=== PATIENT | female | born 1990 | race Caucasian/White ===

== ENCOUNTER → 2022-10-19 | Outpatient (CLI) | payer OTHER ==
[~2022-10-19] MED LIST: COLA100C5 PO; IBUP80TA PO; MAPA500T2 PO; PRENTAB20 PO; VIIB40TA PO
== END ==
LOC: M LABSMTC 09:24
PROVIDERS: ATTEND Anesthesiology
DX: Z01.812 Encounter for preprocedural laboratory examination (principal); Z11.52 Encounter for screening for COVID-19

== ENCOUNTER 2022-10-21 09:57 | Day surgery (SDC) | payer OTHER ==
[~2022-10-21] VITALS: Ht 162.6 cm; Wt 69.4 kg
[~2022-10-21 09:57] MED LIST changes: +dexameTHASONE 4 MG/ML 1ML VIAL (J1100 PER 1MG) IV ONE
[2022-10-21] MEDS ORDERED: LR 1,000 ML IV SCH (10:55)
[2022-10-21 11:04] LABS: CHLORIDE LEVEL 104 MMOL/L (98-107); SODIUM LEVEL 140 MMOL/L (136-145)
[2022-10-21 11:06] LABS: CARBON DIOXIDE LEVEL 29 MMOL/L (20-31)
[2022-10-21 11:10] LABS: BLOOD UREA NITROGEN 13 MG/DL (9-23); CALCIUM LEVEL 9.4 MG/DL (8.5-10.1); GLUCOSE, FASTING 86 MG/DL (60-100)
[2022-10-21 11:12] LABS: CREATININE FOR GFR 0.66 MG/DL (0.55-1.30); GLOMERULAR FILTRATION RATE > 60.0 (>60)
[2022-10-21] MEDS ORDERED: LIDOCAINE 2% 100MG/5ML SDV (FOR ANES.) As Ordered ONE (12:05)
[2022-10-21] MEDS ORDERED: MIDAZOLAM INJ 2MG/2ML VIAL (J2250 PER 1MG) As Ordered ONE (12:05)
[2022-10-21] MEDS ORDERED: fentaNYL 100 MCG/2 ML INJECTION As Ordered ONE (12:05)
[2022-10-21] MEDS ORDERED: propofoL 200 MG/20 ML VIAL As Ordered ONE (12:05)
[2022-10-21] MEDS ORDERED: dexameTHASONE 4 MG/ML 1ML VIAL (J1100 PER 1MG) As Ordered ONE (12:22)
[2022-10-21] MEDS ORDERED: ACETAMINOPHEN 1000MG 100ML IV BAG As Ordered ONE (12:24)
[2022-10-21] MEDS ORDERED: SUGAMMADEX SODIUM 500 MG/5 ML VIAL (BRIDION) As Ordered ONE ×2 (12:28→12:29)
[2022-10-21] MEDS ORDERED: ONDANSETRON 4MG 2ML VIAL IV PRN (12:40)
[2022-10-21] MEDS: oxyCODONE 5MG TAB PO PRN ×2 (13:12→13:44)
[2022-10-21] MEDS: fentaNYL 100 MCG/2 ML INJECTION IV PRN ×4 (13:12→13:45)
[2022-10-21 15:00] VITALS: BP 108/61
== END 2022-10-21 15:14 | disposition home or self-care (01) ==
LOC: M SDC 09:57
PROVIDERS: ATTEND Otolaryngology
DX: J35.01 Chronic tonsillitis (principal); Z88.8 Allergy status to other drugs, medicaments and biological substances
CPT/HCPCS: 36415; 42826; 80048; 88302; 93005; J0131; J1100; J2250; J3010

== ENCOUNTER 2022-10-29 05:49 | Emergency (ER) | payer OTHER ==
[~2022-10-29] VITALS: Ht 162.6 cm; Wt 68.1 kg
[~2022-10-29 05:49] MED LIST changes: -dexameTHASONE 4 MG/ML 1ML VIAL (J1100 PER 1MG) IV ONE
[2022-10-29 05:51] VITALS: BP 103/74
== END 2022-10-29 08:55 | disposition left against medical advice (07) ==
LOC: M ED 05:49
DX: Z53.21 Procedure and treatment not carried out due to patient leaving prior to being seen by health care provider (principal)

== ENCOUNTER 2022-11-02 09:48 | Observation (INO) | payer OTHER ==
[~2022-11-02] VITALS: Ht 162.6 cm; Wt 68.4 kg
[2022-11-02] VITALS (8 sets, daily range): BP systolic 88–108; BP diastolic 54–69
[2022-11-02] MEDS ORDERED: TRANEXAMIC ACID 100 MG/ML 10ML VIAL NEB ONE (10:00)
[2022-11-02] MEDS ORDERED: BUPIVACAINE/EPIN 0.5% 30ML VIAL As Ordered ONE (10:15)
[2022-11-02] MEDS ORDERED: OXYMETAZOLINE 0.05% NASAL SPRAY (AFRIN) As Ordered ONE (10:15)
[2022-11-02] MEDS ORDERED: fentaNYL 100 MCG/2 ML INJECTION As Ordered ONE ×2 (10:16→11:24)
[2022-11-02] MEDS ORDERED: ROCURONIUM BROMIDE 50 MG/5 ML VIAL As Ordered ONE (10:17)
[2022-11-02] MEDS ORDERED: MIDAZOLAM INJ 2MG/2ML VIAL (J2250 PER 1MG) As Ordered ONE (10:18)
[2022-11-02] MEDS ORDERED: LIDOCAINE 2% 100MG/5ML SDV (FOR ANES.) As Ordered ONE (10:22)
[2022-11-02 10:34] LABS: BASO % 0.5 % (0.0-1.0); EOS # 0.1 10^3/uL (0.0-0.5); EOS % 0.7 % (0.0-3.0); HEMATOCRIT 28.8 % (36.0-47.0); HEMOGLOBIN 9.4 g/dl (12.0-15.5); LYMPH # 1.9 10^3/uL (1.5-5.0); LYMPH % 22.5 % (24.0-44.0); MEAN CORPUSCULAR HEMOGLOBIN 29.7 pg (27.0-33.0); MEAN CORPUSCULAR HGB CONC 32.6 g/dl (32.0-36.5); MEAN CORPUSCULAR VOLUME 90.9 fl (80.0-96.0); MONO # 0.6 10^3/uL (0.0-0.8); NEUTROPHILS % 69.1 % (36.0-66.0); PLATELET COUNT, AUTOMATED 230 10^3/uL (150-450); RED BLOOD COUNT 3.17 10^6/uL (4.00-5.40); WHITE BLOOD COUNT 8.6 10^3/uL (4.0-10.0)
[2022-11-02] MEDS ORDERED: ACETAMINOPHEN 1000MG 100ML IV BAG As Ordered ONE (10:53)
[2022-11-02] MEDS ORDERED: PHENYLephrine 500MCG 5ML (100MCG/ML) SYRINGE As Ordered ONE (10:55)
[2022-11-02] MEDS ORDERED: ePHEDrine SULFATE 25 MG/5 ML(5MG/ML) SYRINGE As Ordered ONE (10:56)
[2022-11-02] MEDS ORDERED: SUGAMMADEX SODIUM 500 MG/5 ML VIAL (BRIDION) As Ordered ONE (10:57)
[2022-11-02 11:03] LABS: BLOOD UREA NITROGEN 24 MG/DL (9-23); CALCIUM LEVEL 7.9 MG/DL (8.5-10.1); CARBON DIOXIDE LEVEL 24 MMOL/L (20-31); CHLORIDE LEVEL 111 MMOL/L (98-107); CREATININE FOR GFR 0.67 MG/DL (0.55-1.30); GLOMERULAR FILTRATION RATE > 60.0 (>60); GLUCOSE, FASTING 105 MG/DL (60-100); POTASSIUM SERUM 4.4 MMOL/L (3.5-5.1); SODIUM LEVEL 142 MMOL/L (136-145)
[2022-11-02] MEDS ORDERED: LR 1,000 ML IV SCH (11:25)
[2022-11-02] MEDS ORDERED: ONDANSETRON 4MG 2ML VIAL IV PRN ×2 (11:25→12:25)
[2022-11-02] MEDS: fentaNYL 100 MCG/2 ML INJECTION IV PRN ×4 (11:26→11:44)
[2022-11-02] MEDS: MORPHINE 2 MG/ML 1ML VIAL IV PRN ×3 (12:03→12:50)
[2022-11-02] MEDS: HYDROcodone/APAP LIQUID 7.5-325MG 15ML UDC (LORTAB ELIXIR) PO PRN ×3 (13:06→20:46)
[2022-11-02] MEDS: LR 1,000 ML IV SCH ×2 (15:08→20:47)
[2022-11-02] MEDS: MAGIC MOUTHWASH SUSPENSION BTL SS PRN ×2 (18:43→22:31)
[2022-11-02] MEDS: AUGMENTIN BID 400MG/5ML SUSP 50ML BTL PO SCH (20:47)
[2022-11-02] MEDS ORDERED: MORPHINE 10 MG/ML 1ML VIAL IV ONE (23:40)
[2022-11-03] VITALS (9 sets, daily range): BP systolic 95–116; BP diastolic 58–70; O2SAT 100
[2022-11-03 00:24] LABS: MEAN CORPUSCULAR HEMOGLOBIN 29.8 pg (27.0-33.0); MEAN CORPUSCULAR HGB CONC 32.8 g/dl (32.0-36.5); MEAN CORPUSCULAR VOLUME 90.8 fl (80.0-96.0); PLATELET COUNT, AUTOMATED 150 10^3/uL (150-450); RED BLOOD COUNT 2.18 10^6/uL (4.00-5.40); WHITE BLOOD COUNT 10.8 10^3/uL (4.0-10.0)
[2022-11-03 00:29] LABS: HEMATOCRIT 19.8 % (36.0-47.0); HEMOGLOBIN 6.5 g/dl (12.0-15.5)
[2022-11-03] MEDS: HYDROcodone/APAP LIQUID 7.5-325MG 15ML UDC (LORTAB ELIXIR) PO PRN ×3 (03:21→14:57)
[2022-11-03 07:19] LABS: HEMATOCRIT 30.1 % (36.0-47.0); MEAN CORPUSCULAR HGB CONC 32.9 g/dl (32.0-36.5); MEAN CORPUSCULAR VOLUME 91.2 fl (80.0-96.0); PLATELET COUNT, AUTOMATED 107 10^3/uL (150-450); WHITE BLOOD COUNT 11.7 10^3/uL (4.0-10.0)
[2022-11-03 07:24] LABS: HEMOGLOBIN 9.9 g/dl (12.0-15.5)
[2022-11-03] MEDS: LR 1,000 ML IV SCH (09:05)
[2022-11-03] MEDS: AUGMENTIN BID 400MG/5ML SUSP 50ML BTL PO SCH (09:05)
== END 2022-11-03 15:55 | disposition home or self-care (01) ==
LOC: EDBD 09:48 → M ED 09:48 → M SDC 10:10 → M MS5PR 10:11 → M ED INP 13:38 → M MS5PR 14:25
PROVIDERS: ADMIT Otolaryngology; ATTEND Otolaryngology
DX: K91.840 Postprocedural hemorrhage of a digestive system organ or structure following a digestive system procedure (principal); R11.2 Nausea with vomiting, unspecified; R51.9 Headache, unspecified; F32.A Depression, unspecified; Z88.8 Allergy status to other drugs, medicaments and biological substances; Z79.899 Other long term (current) drug therapy
CPT/HCPCS: 36415; 36430; 42962; 80047; 80048; 85025; 85027; 86850; 86900; 86901; 86920; 94640; 96374; 96375; 99284; J0131; J2250; J2270; J2370; J2405; J3010; P9016

== ENCOUNTER → 2024-10-18 | Outpatient (CLI) | payer OTHER ==
[2024-10-18 19:10] LABS: HEMOGLOBIN A1c 4.9 % (4.0-6.0)
[2024-10-18 19:14] LABS: CHOLESTEROL RISK RATIO 3.1 (<5); HDL CHOLESTEROL 55.7 MG/DL (>40); LDL CHOLESTEROL 90.7 MG/DL (<100); NON-HDL-C 117.3 MG/DL
== END ==
LOC: M PLALAB 14:34
PROVIDERS: ATTEND Nurse Practitioner Family
DX: E28.2 Polycystic ovarian syndrome (principal)

== ENCOUNTER → 2024-10-28 | Outpatient (CLI) | payer OTHER | LOC: M RAD 14:02 | PROVIDERS: ATTEND Nurse Practitioner Family | DX: R22.0 Localized swelling, mass and lump, head (principal) ==

== ENCOUNTER → 2024-11-30 | Outpatient (CLI) | payer OTHER | LOC: M WHC 07:19 | PROVIDERS: ATTEND Nurse Practitioner Family | DX: E28.2 Polycystic ovarian syndrome (principal); N64.4 Mastodynia; N83.201 Unspecified ovarian cyst, right side; R92.323 Mammographic fibroglandular density, bilateral breasts | CPT/HCPCS: 76642; 76830; 76856; 77066; G0279 ==

== ENCOUNTER → 2024-12-29 | Outpatient (REF) | payer OTHER ==
[2024-12-31 16:06] LABS: HPV APTIMA Not Detected (Not Detected)
== END ==
LOC: M SFHCWAGY 14:24
PROVIDERS: ATTEND Nurse Practitioner Family
DX: Z12.4 Encounter for screening for malignant neoplasm of cervix (principal); Z11.51 Encounter for screening for human papillomavirus (HPV)